=== PATIENT | female | born 1995 | race Caucasian/White ===

== ENCOUNTER 2018-06-06 07:28 | Day surgery (SDC) | payer BC ==
--- NOTE | 2018-06-01 13:46 | HP ---
PREOPERATIVE HISTORY AND PHYSICAL: DATE OF SURGERY/ADMISSION: 06/06/18 [facility] DATE OF OFFICE VISIT/ENCOUNTER: 06/01/18 ATTENDING SURGEON: oN Black MD * (DICTATED BY DIRK ORTEGA) PROCEDURE: Left long finger trigger release, left wrist carpal tunnel release. CHIEF COMPLAINT: Left long finger triggering, left hand numbness and tingling. HISTORY OF PRESENT ILLNESS: This is a 22-year-old female who complains of pain in her left wrist and locking and triggering of her left middle finger. This has been ongoing for 10 months. She denies any injury. 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 Symptoms are sporadic and she cannot link them to any specific activity. She reports that at her wrist, she will get swelling and bruising on the volar aspect. She also gets swelling in the middle of the palm which them limits the range of motion of her middle finger. She does use repetitive motions during her job. She occasionally uses a brace, which is somewhat helpful. She has recurrent tingling in her fingers, particularly the thumb, index, and middle finger. She has been diagnosed with left carpal tunnel syndrome and trigger finger of the left long finger, and she would like to proceed with surgical intervention for both of these problems. PAST MEDICAL HISTORY: 1. Hypothyroidism. 2. Anxiety/depression. 3. Seasonal allergies. 4. History of Lyme disease. 5. History of heavy menstrual bleeding, which requires her to take dose of a tranexamic acid every month for 5 days. This has been ongoing for the past 4 years. PAST SURGICAL HISTORY: Tonsillectomy. CURRENT MEDICATIONS: 1. Cetirizine HCL 10 mg daily. 2. Levothyroxine sodium 125 mcg daily. 3. Ranitidine 150 mg twice a day p.r.n. 4. Sertraline HCL 25 mg daily. 5. TXA 2 pills 3 times a day for 5 days every month. ALLERGIES: SULFA antibiotics cause hives. FAMILY MEDICAL HISTORY: Cancer, hypertension, stroke. 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 She denies smoking, but does occasionally vape. She denies recreational drug use. She drinks alcohol on occasion. REVIEW OF SYSTEMS: Negative for general, cephalic, cardiovascular, respiratory , GI, , other musculoskeletal, integumentary, endocrine, neurologic, and hematologic symptoms. Infectious disease is negative for MRSA, hepatitis C, HIV. PHYSICAL EXAMINATION GENERAL: Well-developed, well-nourished 22-year-old female, in no acute distress. VITAL SIGNS: Height 5 feet 8 inches, weight 195 pounds, pulse rate 72, blood pressure 112/82. HEENT: Normocephalic, atraumatic. Pupils are equal, round, and reactive to light and accommodation. Extraocular movements are intact. Throat is clear. NECK: Supple. No palpable lymph nodes. PULMONARY: Lungs are clear to auscultation bilaterally. No wheezes, rales, or rhonchi. CARDIOVASCULAR: Regular rate and rhythm. S1, S2. No murmurs, rubs, or gallops. No edema. ABDOMEN: Positive bowel sounds. Soft, nontender. NEUROLOGICAL: Alert and oriented x3. Cranial nerves II through XII are intact. Sensation is intact to light touch. MUSCULOSKELETAL: On exam of her left hand and wrist, there is no ecchymosis. There is mild swelling just proximal to the wrist flexion crease. She can fully flex and extend her fingers into a fist and has slight tenderness at the A1 brianne of the middle finger. No active triggering. Sensation is intact to light touch at the median nerve distribution. She has weakness with thumb abduction on the left compared to the right. IMPRESSION: Left carpal tunnel syndrome and middle finger trigger finger. PLAN: The patient is scheduled to undergo a left long finger trigger release and a left wrist carpal tunnel release with Dr. Black on 06/06/18. She will return to the office 10 days postop for followup and suture removal. A prescription for Tylenol No.3 was e-scribed to the patient's pharmacy for postoperative pain management. DIRK ORTEGA [id number]/[facility] #: [id number] MTDD
[~2018-06-06 07:28] MED LIST: Buffered Lidocaine 1% SYRIN* 1 ML/SYRINGE INTRADERM ONE; Lactated Ringers 1000 ML Bag* 1,000 ML IV SCH
[2018-06-06] MEDS ORDERED: fentaNYL* 50 MCG/ML 2 ML VIAL (100 MCG VIAL) ONE (08:20)
[2018-06-06] MEDS ORDERED: Midazolam* 1 MG/ML 2 ML VIAL (2 MG) ONE (08:21)
[2018-06-06] MEDS ORDERED: Lidocaine 1% INJ* 10 MG/ML 30 ML SDV ONE (08:50)
[2018-06-06] MEDS ORDERED: Naloxone* 0.4 MG/ML 1 ML VIAL IV PRN (08:54)
[2018-06-06] MEDS ORDERED: HYDROcodone/ACETAMIN 5-325 MG* 1 TAB ONE (09:39)
[2018-06-06 10:12] VITALS: BP 108/60
--- NOTE | 2018-06-06 15:14 | OP ---
DATE OF OPERATION: 06/06/18 [facility] DATE OF : 89 SURGEON: No Black MD LAMINATING PRESS OPERATOR: DIRK Cazares ANESTHESIA: Local MAC. PRE-OP DIAGNOSES: 1. Left long finger trigger finger. 2. Left carpal tunnel syndrome. POST-OP DIAGNOSES: 1. Left long finger trigger finger. 2. Left carpal tunnel syndrome. OPERATIVE PROCEDURE: Left long finger trigger release and left carpal tunnel release. ESTIMATED BLOOD LOSS: Zero. TOURNIQUET TIME: Approximately 15 minutes. 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 She presents for trigger finger release and carpal tunnel release, left middle finger and left hand. DESCRIPTION OF PROCEDURE: The patient was brought to the operating room, was given a sedation anesthetic and a local infiltration of 10 cc of 1% plain lidocaine in the palm of her left hand. The skin of her left hand and forearm was prepped and draped in the usual sterile fashion. The hand and forearm were exsanguinated and the tourniquet elevated to 250 mmHg. A transverse incision was made centered over the A1 brianne of the middle finger. We dissected through the subcutaneous tissue down to the A1 brianne. The brianne was incised longitudinally completely releasing the flexor tendon which was in good condition. The wound was irrigated and the skin edges reapproximated with 4-0 nylon suture. Next, a longitudinal incision was made in the palm in line with the ring finger. We dissected through the subcutaneous tissue down to the transverse carpal ligament. The ligament was divided sharply with a knife and then more proximally with the scissors. The nerve was dissected free from the surrounding tissue and there was an area of moderate compression at the mid portion of the ligament. The wound was irrigated and the skin edges were reapproximated with 4-0 nylon suture. The wounds were dressed with Xeroform, 4x4, Webril, and an Kalia wrap. The patient tolerated the procedure well and was brought to the recovery room in good condition. [id number]/[facility] #: [id number] [facility] HOSPITALDeangelo
== END 2018-06-06 10:13 | disposition home or self-care (01) ==
LOC: OREAST 07:28
PROVIDERS: ATTEND Orthopaedic Surgery
DX: G56.02 Carpal tunnel syndrome, left upper limb (principal); M65.332 Trigger finger, left middle finger; E03.9 Hypothyroidism, unspecified; F41.8 Other specified anxiety disorders; N93.8 Other specified abnormal uterine and vaginal bleeding
CPT/HCPCS: 81025; J2250; J3010